=== PATIENT | female | born 1970 | race Caucasian/White ===

== ENCOUNTER 2017-11-27 08:00 | Day surgery (SDC) | payer BC ==
[~2017-11-27 08:00] MED LIST: Buffered Lidocaine 0.9% SYRIN* 5 ML/SYR SYRINGE INTRADERM ONE; Dexamethasone IV* 4 MG/ML 1 ML (4 MG) IV SLOW PU ONE; Famotidine IV* 10 MG/ML 2 ML (20 mg) IV ONE
[2017-11-27] MEDS ORDERED: ceFAZolin 2 GM in NS PREMIX(*) 2 GM/100 ML BAG IVPB ONE (08:17)
[2017-11-27] MEDS ORDERED: Dexamethasone IV* 4 MG/ML 1 ML (4 MG) ONE (08:17)
[2017-11-27] MEDS ORDERED: Famotidine IV* 10 MG/ML 2 ML (20 mg) ONE (08:17)
[2017-11-27] MEDS ORDERED: fentaNYL* 50 MCG/ML 2 ML VIAL (100 MCG VIAL) ONE (09:20)
[2017-11-27] MEDS ORDERED: Midazolam* 1 MG/ML 5 ML VIAL (5 MG) ONE (09:20)
[2017-11-27] MEDS ORDERED: Ketorolac INJ* 30 MG/ML 1 ML VIAL ONE (09:33)
[2017-11-27] MEDS ORDERED: Propofol* 10 MG/ML 20 ML BTL IV PUSH ONE (09:33)
[2017-11-27] MEDS ORDERED: Lidocaine 2% PF * 5 ML VIAL ONE (09:33)
[2017-11-27] MEDS ORDERED: fentaNYL* 50 MCG/ML 2 ML VIAL (100 MCG VIAL) IV PRN (10:04)
[2017-11-27] MEDS ORDERED: HYDROcodone/ACETAMIN 5-325 MG* 1 TAB PO PRN (10:04)
[2017-11-27] MEDS ORDERED: Naloxone* 0.4 MG/ML 1 ML VIAL IV PRN (10:04)
[2017-11-27] MEDS ORDERED: DiMENhydriNATE IV* 50 MG/ML VIAL IV PUSH PRN (10:04)
[2017-11-27] MEDS ORDERED: oxyCODONE/Acetamin 5/325 MG* TAB PO PRN (10:04)
[2017-11-27] MEDS ORDERED: Bupivacaine 0.25% SDV PF* 10 ML VIAL INJ ONE (10:34)
[2017-11-27] MEDS ORDERED: Ondansetron INJ* 2 MG/ML VIAL ONE (10:38)
[2017-11-27] MEDS ORDERED: HYDROcodone/ACETAMIN 5-325 MG* 1 TAB ONE (12:40)
[2017-11-27 13:01] VITALS: BP 146/96
--- NOTE | 2017-12-02 07:27 | OP ---
OPERATIVE REPORT: DATE OF OPERATION: 11/27/17 DATE OF : 74 SURGEON: Ameya Kilpatrick MD SPRAY WORKER: PHIL Rdz An undertaker assistant was needed for the procedure to aid in positioning of the arm and retraction. ANESTHESIOLOGIST: Dr. Davidson. ANESTHESIA: PRE-OP DIAGNOSES: 1. Right wrist triangular fibrocartilage complex tearing of the ulnocarpal and ulnar collateral ligaments at their insertion on the carpus. 2. Right pisotriquetral joint degenerative joint disease. POST-OP DIAGNOSES: 1. Right wrist triangular fibrocartilage complex tearing of the ulnocarpal and ulnar collateral ligaments at their insertion on the carpus. 2. Right pisotriquetral joint degenerative joint disease. 3. Right pisotriquetral joint loose body. OPERATIVE PROCEDURE: 1. Diagnostic right wrist arthroscopy with triangular fibrocartilage and debridement of unstable flap of ulnar carpal ligament. 2. Right pisiform excision. 3. Right triangular fibrocartilage complex repair. INDICATIONS: Claus has had ulnar-sided wrist pain for quite some time, which was progressive pain as it is adjacent to the pisotriquetral joint. She has lot of problems with the dart-throw motion We talked about risks and benefits including the risk of persistent pain despite surgery. She just wanted to proceed with surgery. ESTIMATED BLOOD LOSS: 2 mL. COMPLICATIONS: None. FINDINGS: See above and below. DESCRIPTION OF PROCEDURE: Claus was seen in the preoperative holding area, the correct side, site, and procedure were identified. Came back to the operating room. Again, she was prepped and draped in the usual fashion. A time-out was performed. The arm was placed in the Acumed traction tower and a nice traction was provided opening up the radiocarpal and midcarpal joints. The arm was exsanguinated with the Esmarch and the tourniquet inflated to 250 mmHg. I then opened the skin just enough to develop a portal in the 3-4 location on the dorsum of the wrist. The camera was introduced into this portal. The wrist arthroscopy revealed delamination of a portion of the ulnocarpal ligaments without loose flaps, flapping down into the ulnocarpal joint between the TFCC and the triquetrum and ulnar portion of the lunate. There was no central perforation. There did not appear to be any step-off or any signs of instability at the scapholunate or lunotriquetral joints. I then developed a 6R portal in a standard fashion and introduced the shaver and the biters through the portal. The unstable flap of soft tissue was debrided back. I then brought in the radiofrequency ablator and cauterized that area to try to prevent any further development of another unstable flap tissue. At this point , everything was looking very nice inside the joint, so I retrieved the arthroscopic equipment and returned our attention to the open portion of the procedure. I made a longitudinal incision over the ulnar palm, back across the ulnar side of the wrist in a Mickey-type fashion. Full-thickness flaps were raised off the FCU tendon over the pisiform. I used a [place] blade to longitudinally incise the soft tissue over the pisiform, actually then shelled out pisiform with the [place] blade taking great care not to injure the neurovascular bundle. Pisiform was excised in its entirety. There was a full-thickness cartilage flap on its undersurface, immediately noted after pisiform excision was a small loose body in the joint. This was excised as well. This then gave me access to the ulnocarpal and ulnar collateral ligaments. There was some feeling off of these ligaments until I placed one mini Mitek suture anchor. The 2-0 Ethibond suture was placed into the ligaments and these were tied back down to the bone. Once the TFCC repair was completed, I irrigated out the wound. The slit in the FCU tendon was closed with some 4-0 Ethibond suture. The skin was then closed in a standard fashion. The operative area was infiltrated with local anesthetic. The wounds were dressed and a sugar-tong splint was applied. Tourniquet was deflated and the hand pinked up immediately. She was then awoken up and taken to recovery room in stable condition. [id number]/[facility] #: [id number] [facility]USJemal
== END 2017-11-27 13:04 | disposition home or self-care (01) ==
LOC: OR 08:00
PROVIDERS: ATTEND Orthopaedic Surgery Hand Surgery
DX: S63.33 Traumatic rupture of ulnocarpal (palmar) ligament (principal); S63.311A Traumatic rupture of collateral ligament of right wrist, initial encounter; M24.031 Loose body in right wrist; M19.031 Primary osteoarthritis, right wrist; X50.0XXA Overexertion from strenuous movement or load, initial encounter; Y92.009 Unspecified place in unspecified non-institutional (private) residence as the place of occurrence of the external cause
CPT/HCPCS: 88304; 88311; C1713; J0690; J1100; J1885; J2250; J2405; J2704; J3010; J3490

== ENCOUNTER 2018-03-22 06:10 | Day surgery (SDC) | payer BC ==
[~2018-03-22 06:10] MED LIST changes: -Dexamethasone IV* 4 MG/ML 1 ML (4 MG) IV SLOW PU ONE; -Famotidine IV* 10 MG/ML 2 ML (20 mg) IV ONE; +Lactated Ringers 1000 ML Bag* 1,000 ML IV SCH
[2018-03-22] MEDS ORDERED: Bupivacaine 0.25% SDV PF* 10 ML VIAL INJ ONE (07:16)
[2018-03-22] MEDS ORDERED: Midazolam* 1 MG/ML 5 ML VIAL (5 MG) ONE (07:25)
[2018-03-22] MEDS ORDERED: fentaNYL* 50 MCG/ML 2 ML VIAL (100 MCG VIAL) ONE (07:25)
[2018-03-22] MEDS ORDERED: Naloxone* 0.4 MG/ML 1 ML VIAL IV PRN (07:29)
[2018-03-22] MEDS ORDERED: Propofol* 10 MG/ML 20 ML BTL ONE (07:41)
[2018-03-22] MEDS ORDERED: Lidocaine 2% PF * 5 ML VIAL ONE (07:41)
[2018-03-22 08:09] VITALS: BP 145/85
--- NOTE | 2018-03-22 09:06 | OP ---
DATE OF OPERATION: 03/22/18 [facility] DATE OF : 74 SURGEON: Ameya Kilpatrick MD ROOFER HELPER VINYL COATING: PHIL Rdz ANESTHESIOLOGIST: Dr. Allred ANESTHESIA: Local MAC. PRE-OP DIAGNOSIS: Left carpal tunnel syndrome. POST-OP DIAGNOSIS: Left carpal tunnel syndrome. OPERATIVE PROCEDURE: Left open carpal tunnel release. INDICATIONS: Claus has progressive carpal tunnel syndrome. We talked about risks and benefits and she wanted to proceed with surgery. ESTIMATED BLOOD LOSS: 2 mL. COMPLICATIONS: None. FINDINGS: See above and below. DESCRIPTION OF PROCEDURE: Claus was seen in the preoperative holding area. The correct side, site, and procedure were identified. We came back to the operating room. The arm was prepped and draped in the usual fashion. I had injected some local anesthetic 0.25% Marcaine prior to prepping and draping. A time-out was performed. The arm was exsanguinated with the Esmarch and the tourniquet was inflated to 250 mmHg. I then made a 2 to 3 cm incision in the proximal palm in the typical location for an open carpal tunnel release. Dissection was carried down through the subcutaneous tissue and fascia. The transverse carpal ligament was then released just off of the radial aspect of the hook of the hamate. The release was completed distally. Proximally, I released the subcutaneous tissue and fascia and retracted this out of the way with a Bianca retractor. The remainder of the transverse carpal ligament was then released with the tenotomy scissors. Once I confirmed the release distally and proximally, there was no compression on the nerve. The wound was irrigated out. The skin was closed with 4-0 nylon suture. The patient was taken to the recovery room in stable condition. [id number]/[facility] #: [id number] [facility]
== END 2018-03-22 08:22 | disposition home or self-care (01) ==
LOC: OREAST 06:10
PROVIDERS: ATTEND Orthopaedic Surgery Hand Surgery
DX: G56.02 Carpal tunnel syndrome, left upper limb (principal); E03.9 Hypothyroidism, unspecified
CPT/HCPCS: J2250; J2704; J3010; J3490